=== PATIENT | female | born 1965 | race Hispanic/Latino ===

== ENCOUNTER 2021-11-13 08:45 | Emergency (ER) | payer OTHER ==
[~2021-11-13] VITALS: Ht 160 cm; Wt 80.7 kg
[2021-11-13 10:13] LABS: BASOPHILS % (AUTO) 0.5 % (0.0-5.0); EOSINOPHILS % (AUTO) 1.2 % (0.0-8.0); HEMATOCRIT 41.2 % (36-48); MEAN CORPUSCULAR HEMOGLOBIN 29.3 pg (27.0-33.0); MEAN CORPUSCULAR HGB CONC 33.3 g/dL (32.0-36.0); MONOCYTES % (AUTO) 6.3 % (3.0-13.0); NEUTROPHILS % (AUTO) 47.8 % (40.0-77.0); PLATELET COUNT (AUTO) 241 K/uL (130-400); RED BLOOD CELL COUNT(AUTO) 4.68 MIL/uL (4.00-5.50); RED CELL DISTRIBUTION WIDTH 13.1 % (11.0-15.5); WHITE BLOOD COUNT (AUTO) 5.8 K/uL (4.8-10.8)
[2021-11-13 10:26] LABS: INR 0.94 (0.85-1.15); PROTHROMBIN TIME 10.3 SEC (9.6-11.6)
[2021-11-13 10:28] LABS: PARTIAL THROMBOPLASTIN TIME 29.8 SEC (26.3-35.5)
[2021-11-13 10:34] LABS: CREATININE 0.8 mg/dL (0.5-1.5); POTASSIUM 4.7 mmol/L (3.5-5.1)
[2021-11-13 10:39] LABS: ALBUMIN 3.9 g/dL (3.5-5.0); TOTAL PROTEIN, SERUM 8.6 g/dL (6.0-8.3)
[2021-11-13 11:18] VITALS: BP 167/74
== END 2021-11-13 11:22 | disposition home or self-care (01) ==
LOC: EDH 08:45
DX: R04.0 Epistaxis (principal); G43.909 Migraine, unspecified, not intractable, without status migrainosus
CPT/HCPCS: 36415; 80053; 85025; 85610; 85730